=== PATIENT | female | born 1970 | race Caucasian/White ===

== ENCOUNTER 2016-02-22 09:50 | Outpatient (RCR) | payer OTHER ==
--- OUTSIDE RECORDS SUMMARY | 2016-02-18 15:44 | XMS REPORT | Continuity of Care Document ---
Author Author [facility] Organization [facility] Address Unknown Phone Unavailable Care Team Providers Care Dean Of Girls Name Role Phone PCP Unavailable Source Comments Some departments are not documenting in the electronic medical record. If you do not see the information that you expected, contact Release of Information in the Health Information Management department at [phone] for further assistance in locating additional records.[facility] Active Allergies and Adverse Reactions Allergen Noted Date Severity Reactions Comments Ceftin 02/11/2016 Medium RASH, ITCHING Nylon 02/11/2016 Low ITCHING Nylon 02/11/2016 Low ITCHING Other 02/11/2016 Low ITCHING Patient states that some general anesthesia makes her itch Current Medications Prescription Sig. Disp. Refills Start End Date Status Date desvenlafaxine(+) Take 50 mg by mouth Active (PRISTIQ) 50 mg tablet daily. cetirizine (ZYRTEC) 10 mg Take 10 mg by mouth every Active tablet morning. montelukast (SINGULAIR) Take 10 mg by mouth at Active 10 mg tablet bedtime daily. omeprazole DR(+) Take 20 mg by mouth daily Active (PRILOSEC) 20 mg capsule before breakfast. magnesium oxide (MAG-OX) Take 400 mg by mouth Active 400 mg tablet daily. vitamins, B complex tab Take 1 Tab by mouth Active daily. fluticasone (FLONASE) 50 Apply 2 Sprays to each Active mcg/actuation nasal spray nostril as directed daily. Shake bottle gently before using. Lactobacillus rhamnosus Take 1 Cap by mouth as Active GG (LACTOBACILLUS directed twice daily with RHAMNOSUS (GG)) 15 meals. billion cell cpSP amoxicillin/K clavulanate Take 1 Tab by mouth every Active (AUGMENTIN) 875/125 mg 12 hours. Take with food. tablet predniSONE (DELTASONE) 20 Take 20 mg by mouth daily Active mg tablet with breakfast. Active Problems Problem Noted Date Flank pain 02/13/2016 Last Assessment & Plan: Recommend MRI - referred to PMD to order Microhematuria 02/13/2016 Overview: Need records for review Most Recent Encounters Date Type Specialty Providers Description 02/11/2016 Hospital Bassam Mendoza PA-C Other microscopic Encounter hematuria 02/11/2016 Office Visit Urology Bassam Mendoza PA-C Microhematuria ( Primary Dx); Flank pain Social History Tobacco Use Types Packs/Day Years Used Date Never Smoker Smokeless Tobacco: Never Used Last Filed Vital Signs Vital Sign Reading Time Taken Blood Pressure 150/80 02/11/2016 1:45 PM CDT Pulse 92 02/11/2016 1:45 PM CDT Temperature - - Respiratory Rate - - Height 1.727 m (5' 8") 02/11/2016 1:45 PM CDT Weight 102.422 kg (225 lb 12.8 02/11/2016 1:45 PM CDT oz) Body Mass Index 34.34 02/11/2016 1:45 PM CDT Oxygen Saturation - - Plan of Care Health Maintenance Due Date Last Done Comments Physical (Comprehensive) 1977 Exam Pertussis Vaccine 1981 Tetanus Vaccine 12/02/1987 Cervical Cancer Screening 12/02/1991 Breast Cancer Screening 2010 Influenza Vaccine 12/25/2015 Results from Last 3 Months URINALYSIS, MICROSCOPIC (02/11/2016 2:15 PM) Component Value Range WBCs,UA 0-2 0-2 /HPF RBCs,UA 0-2 0-3 /HPF MucousUA 1+ Squamous Epithelial Cells 0-2 0-5 URINALYSIS DIPSTICK (02/11/2016 2:15 PM) Component Value Range Color,UA YELLOW Turbidity,UA 1+ (A) CLEAR-CLEAR Specific [place]-Urine 1.015 1.003-1.035 pH,UA 5.0 5.0-8.0 Protein,UA NEG NEG-NEG Glucose,UA NEG NEG-NEG Ketones,UA NEG NEG-NEG Bilirubin,UA NEG NEG-NEG Blood,UA 2+ (A) NEG-NEG Urobilinogen,UA NORMAL NORM-NORMAL Nitrite,UA NEG NEG-NEG Leukocytes,UA NEG NEG-NEG Urine Ascorbic Acid, UA NEG NEG-NEG
[~2016-02-22 09:50] MED LIST: [UNRECOGNIZED DRUG - SUPPLY]
== END 2016-05-18 | disposition home or self-care (01) ==
LOC: LAB 09:50
PROVIDERS: ATTEND Internal Medicine
DX: R19.7 Diarrhea, unspecified (principal)
CPT/HCPCS: 82274; 87045; 87046; 87177; 87324

== ENCOUNTER 2022-01-06 18:24 | Emergency (ER) | payer OTHER ==
[~2022-01-06] VITALS: Ht 172.7 cm; Wt 106.5 kg
[2022-01-06] MEDS ORDERED: ONDANSETRON 4 MG/2 ML (SDV) Z0FRAN IVP ONE (19:00)
--- NOTE | 2022-01-06 19:04 | ED General ---
General Chief Complaint: Abdominal/GI Problems Stated Complaint: DIZZINESS, VOMITING Nursing Triage Note: PT TO RM6 BY WC WITH COMPLAINT OF N/V, LIGHTHEADED, AND HEADACHE. STATES AROUND 1715 SHE STARTED TO FEEL LIGHTHEADED AND STARTED VOMITING. STATES TOOK HER BP AT THAT TIME AND IT CONTINUED TO RISE. STATES PRIOR TO SYMPTOMS, SHE HAD A HEADACHE. Source of Information: Patient Exam Limitations: No Limitations History of Present Illness Date Seen by Provider: Jan 06, 2022 Time Seen by Provider: 18:41 Initial Comments Patient is a well-appearing 51-year-old female who presented to the ER via wheelchair for complaints headache, nausea and vomiting, dizziness. States that she developed headache earlier in the day and took 2 Tylenol which improved her symptoms. Around 1715 she was sitting outside and started to feel lightheaded and began vomiting. Her spouse took her blood pressure at that time and was noted to be very elevated, states that they continue to take it and her blood pressure continued to rise. States that she has never had any of these symptoms in the past. She has had headaches in the past does not describe this as the worst headache of her life. Her headache is resolved. Allergies and Home Medications Allergies Coded Allergies: cefuroxime (Verified Allergy, Unknown, 09/07/15) Patient Home Medication List Home Medication List Reviewed: Yes [Nylon] , (Reported) Entered as Reported by: ALANA YEUNG on 09/07/15 2268 Past Lwzxzqn-Nnndkz-Ylqsbp Hx Patient Social History Tobacco Use?: No Use of E-Cig and/or Vaping dev: No Substance use?: No Alcohol Use?: No Pt feels they are or have been: No Past Medical History Gallbladder, Hysterectomy Reproductive Disorders: No Physical Exam Vital Signs Vital Signs - First Documented 01/06/22 18:33 Temp 36.6 Pulse 88 Resp 16 B/P (MAP) 187/120 (142) Pulse Ox 97 O2 Delivery Room Air Capillary Refill : Less Than 3 Seconds Height, Weight, BMI Height: 5'6" Weight: 230lbs. oz. 104.711598mx; 35.00 BMI Method:Stated Progress/Results/Core Measures Suspected Sepsis SIRS Temperature: Pulse: 88 Respiratory Rate: 16 Laboratory Tests 01/06/22 18:43: White Blood Count 9.0 Blood Pressure 187 /120 Mean: 142 Laboratory Tests 01/06/22 18:43: Creatinine 0.81, INR Comment 1.0, Platelet Count 293, Total Bilirubin 0.6 Results/Orders Lab Results Laboratory Tests Test 01/06/22 18:43 01/06/22 20:25 Range/Units White Blood Count 9.0 4.3-11.0 10^3/uL Red Blood Count 4.73 3.80-5.11 10^6/uL Hemoglobin 13.5 11.5-16.0 g/dL Hematocrit 41 35-52 % Mean Corpuscular Volume 88 80-99 fL Mean Corpuscular Hemoglobin 29 25-34 pg Mean Corpuscular Hemoglobin Concent 33 32-36 g/dL Red Cell Distribution Width 13.1 10.0-14.5 % Platelet Count 293 130-400 10^3/uL Mean Platelet Volume 11.4 9.0-12.2 fL Immature Granulocyte % (Auto) 0 % Neutrophils (%) (Auto) 63 42-75 % Lymphocytes (%) (Auto) 25 12-44 % Monocytes (%) (Auto) 10 0-12 % Eosinophils (%) (Auto) 2 0-10 % Basophils (%) (Auto) 1 0-10 % Neutrophils # (Auto) 5.7 1.8-7.8 10^3/uL Lymphocytes # (Auto) 2.2 1.0-4.0 10^3/uL Monocytes # (Auto) 0.9 0.0-1.0 10^3/uL Eosinophils # (Auto) 0.2 0.0-0.3 10^3/uL Basophils # (Auto) 0.1 0.0-0.1 10^3/uL Immature Granulocyte # (Auto) 0.0 0.0-0.1 10^3/uL Prothrombin Time 13.7 12.2-14.7 SEC INR Comment 1.0 0.8-1.4 Activated Partial Thromboplast Time 31 24-35 SEC D-Dimer 0.25 0.00-0.49 UG/ML Sodium Level 143 135-145 MMOL/L Potassium Level 4.1 3.6-5.0 MMOL/L Chloride Level 109 H 98-107 MMOL/L Carbon Dioxide Level 24 21-32 MMOL/L Anion Gap 10 5-14 MMOL/L Blood Urea Nitrogen 17 7-18 MG/DL Creatinine 0.81 0.60-1.30 MG/DL Estimat Glomerular Filtration Rate 88 BUN/Creatinine Ratio 21 Glucose Level 98 70-105 MG/DL Calcium Level 8.7 8.5-10.1 MG/DL Corrected Calcium 8.7 8.5-10.1 MG/DL Magnesium Level 2.0 1.6-2.4 MG/DL Total Bilirubin 0.6 0.1-1.0 MG/DL Aspartate Amino Transf (AST/SGOT) 26 5-34 U/L Alanine Aminotransferase (ALT/SGPT) 46 0-55 U/L Alkaline Phosphatase 95 40-136 U/L Total Creatine Kinase 86 29-168 U/L Creatine Kinase MB 0.9 <6.6 NG/ML Myoglobin 21.3 10.0-92.0 NG/ML Troponin I < 0.028 < 0.028 <0.028 NG/ML Total Protein 7.1 6.4-8.2 GM/DL Albumin 4.0 3.2-4.5 GM/DL My Orders Orders - MICHAEL LARSON APRN Ondansetron Injection (Zofran Injectio (01/06/22 19:00) Ct Head Wo-R/O Stroke (01/06/22 18:50) Cbc With Automated Diff (01/06/22 18:50) Magnesium (01/06/22 18:50) Ekg Tracing (01/06/22 18:50) Comprehensive Metabolic Panel (01/06/22 18:50) Myoglobin Serum (01/06/22 18:50) Protime With Inr (01/06/22 18:50) Partial Thromboplastin Time (01/06/22 18:50) Monitor-Rhythm Ecg Trace Only (01/06/22 18:50) Creatine Kinase (01/06/22 18:50) Creatine Kinase Mb (01/06/22 18:50) Fibrin Degradation Products (01/06/22 18:50) Troponin I Jill (01/06/22 18:50) Troponin I Jill (01/06/22 21:00) Medications Given in ED Current Medications Medications Dose Ordered Sig/Ye Route Start Time Stop Time Status Last Admin Dose Admin Ondansetron HCl 8 mg ONCE ONCE IVP 01/06/22 19:00 01/06/22 19:01 DC 01/06/22 18:57 8 MG Vital Signs/I&O 01/06/22 01/06/22 18:33 21:07 Temp 36.6 36.5 Pulse 88 70 Resp 16 20 B/P (MAP) 187/120 (142) 138/78 Pulse Ox 97 97 O2 Delivery Room Air Room Air Capillary Refill : Less Than 3 Seconds Blood Pressure Mean: 142 Progress Note : Progress Note Patient examined. GCS 15. ABCs intact. She has no focal or gross neurological deficits on exam. She has increased light sensitivity, states she feels dizzy lying with her eyes closed. Denies headache. Denies any injury or trauma. Departure Impression Primary Impression: Dizziness Additional Impression: Nausea & vomiting Disposition: 01 HOME, SELF-CARE Condition: Improved Departure-Patient Inst. Decision time for Depature: 21:02 Referrals: RAMIRO OCHOA DO (PCP) Primary Care Physician Patient Instructions: Dizziness, Adult ED, Nausea and Vomiting, Adult ED Add. Discharge Instructions: Plan: 1. Follow up with your doctor for any new, concerning, or worsening symptoms. 2. Drink plenty of fluids to stay hydrated. 3. Return to ER if you have any new, concerning, or worsening symptoms. All discharge instructions reviewed with patient and/or family. Voiced understanding. MICHAEL LARSON ASTRONOMY DEPARTMENT CHAIR Jan 06, 2022 19:04
--- NOTE | 2022-01-06 19:13 | Diagnostic Imaging Report ---
INDICATION: Nausea and vomiting and lightheadedness and hypertension. TECHNIQUE: Multiple contiguous axial images were obtained through the brain without the use of intravenous contrast. Auto Exposure Controls were utilized during the CT exam to meet ALARA standards for radiation dose reduction. There is no prior head CT for comparison There are no extra-axial fluid collections. No intracranial hemorrhage. No intracranial mass or mass effect. No midline shift. The ventricles are normal in size and position. There were no focal parenchymal abnormalities in the brain. Calvarial windows show prominent retention cyst or polyp in the right maxillary sinus. There is no acute bony abnormality. IMPRESSION: No acute intracranial abnormality. Dictated by: Dictated on workstation # [id number]
[2022-01-06 19:14] LABS: BILIRUBIN,TOTAL 0.6 MG/DL (0.1-1.0); CALCIUM 8.7 MG/DL (8.5-10.1); CREATININE SERUM 0.81 MG/DL (0.60-1.30); POTASSIUM 4.1 MMOL/L (3.6-5.0); TOTAL PROTEIN 7.1 GM/DL (6.4-8.2)
[2022-01-06 19:17] LABS: BASOPHILS # (AUTO) 0.1 10^3/uL (0.0-0.1); BASOPHILS % (AUTO) 1 % (0-10); EOSINOPHILS # (AUTO) 0.2 10^3/uL (0.0-0.3); EOSINOPHILS % (AUTO) 2 % (0-10); HEMATOCRIT 41 % (35-52); HEMOGLOBIN 13.5 g/dL (11.5-16.0); LYMPHOCYTES # (AUTO) 2.2 10^3/uL (1.0-4.0); LYMPHOCYTES % (AUTO) 25 % (12-44); MEAN CORPUSCULAR HEMOGLOBIN 29 pg (25-34); MEAN CORPUSCULAR HGB CONC 33 g/dL (32-36); MEAN CORPUSCULAR VOLUME 88 fL (80-99); MEAN PLATELET VOLUME 11.4 fL (9.0-12.2); MONOCYTES # (AUTO) 0.9 10^3/uL (0.0-1.0); MONOCYTES % (AUTO) 10 % (0-12); NEUTROPHILS # (AUTO) 5.7 10^3/uL (1.8-7.8); NEUTROPHILS % (AUTO) 63 % (42-75); PLATELET COUNT 293 10^3/uL (130-400)
[2022-01-06 19:20] LABS: CREATINE KINASE MB 0.9 NG/ML (<6.6)
[2022-01-06 19:21] LABS: PROTHROMBIN TIME PATIENT 13.7 SEC (12.2-14.7)
[2022-01-06 21:07] VITALS: BP 138/78
== END 2022-01-06 21:10 | disposition home or self-care (01) ==
LOC: EDUNIT# 18:24 → ER 18:27
DX: R42 Dizziness and giddiness (principal); R11.2 Nausea with vomiting, unspecified
CPT/HCPCS: 36415; 70450; 80053; 82550; 82553; 83735; 83874; 84484; 85025; 85379; 85610; 85730; 93005; 93041